=== PATIENT | male | born 1995 | race Two or more races ===

== ENCOUNTER 2025-05-09 08:10 | Emergency (ER) | payer OTHER ==
[~2025-05-09] VITALS: Ht 170.2 cm; Wt 90.7 kg
[2025-05-09] MEDS ORDERED: LIDOCAINE HCL 1%/EPINEPHRINE 10 ML VIAL IJ ONE (09:15)
== END 2025-05-09 10:43 | disposition home or self-care (01) ==
LOC: ER 08:10
DX: S01.01XA Laceration without foreign body of scalp, initial encounter (principal); Y04.0XXA Assault by unarmed brawl or fight, initial encounter; Y93.89 Activity, other specified; Y92.89 Other specified places as the place of occurrence of the external cause